=== PATIENT | female | born 1965 | race Caucasian/White ===

== ENCOUNTER 2016-07-09 21:45 | Emergency (ER) | payer MEDICAID ==
[~2016-07-09 21:45] MED LIST: LEVOTHYROXIN0.125 M2 PO
== END 2016-07-09 23:47 | disposition left against medical advice (07) ==
LOC: ED 21:45
DX: Z53.21 Procedure and treatment not carried out due to patient leaving prior to being seen by health care provider (principal)

== ENCOUNTER 2017-09-30 06:47 | Emergency (ER) | payer MEDICAID ==
[~2017-09-30] VITALS: Ht 162.6 cm; Wt 75.7 kg
[2017-09-30 06:52] VITALS: Ht 162.6 cm; Wt 75.7 kg
[2017-09-30 07:36] LABS: BASOPHIL % 0.6 % (0-2); PLATELET COUNT 210 x10^3mcL (130-400); RED CELL DISTRIBUTION WIDTH 14.4 % (11.5-14.5)
[2017-09-30 09:08] VITALS: BP 126/84
== END 2017-09-30 09:08 | disposition home or self-care (01) ==
LOC: ED 06:47
PROVIDERS: Emergency Medicine
DX: R04.0 Epistaxis (principal); I10 Essential (primary) hypertension
CPT/HCPCS: 36415

== ENCOUNTER 2017-10-02 08:57 | Emergency (ER) | payer MEDICAID ==
[~2017-10-02] VITALS: Ht 162.6 cm; Wt 74.8 kg
[2017-10-02 09:02] VITALS: BP 139/91
== END 2017-10-02 10:07 | disposition home or self-care (01) ==
LOC: ED 08:57
DX: Z48.01 Encounter for change or removal of surgical wound dressing (principal); I10 Essential (primary) hypertension

== ENCOUNTER 2019-01-27 00:45 | Emergency (ER) | payer MEDICAID ==
[~2019-01-27] VITALS: Ht 165.1 cm; Wt 71.7 kg
[2019-01-27 01:14] VITALS: Ht 165.1 cm; Wt 71.7 kg
[2019-01-27 02:47] VITALS: BP 139/79
== END 2019-01-27 02:47 | disposition home or self-care (01) ==
LOC: ED 00:45
DX: R68.84 Jaw pain (principal); I10 Essential (primary) hypertension

== ENCOUNTER 2019-09-10 11:42 | Emergency (ER) | payer MEDICAID ==
[~2019-09-10] VITALS: Ht 162.6 cm; Wt 73.0 kg
[2019-09-10 11:52] VITALS: Ht 162.6 cm; Wt 73.0 kg
[2019-09-10 12:37] LABS: BASOPHIL % 0.4 % (0-2); PLATELET COUNT 246 x10^3mcL (130-400)
[2019-09-10 12:40] LABS: RED CELL DISTRIBUTION WIDTH 29.4 % (11.5-14.5)
[2019-09-10 14:44] VITALS: BP 130/75
== END 2019-09-10 14:44 | disposition home or self-care (01) ==
LOC: ED 11:42
PROVIDERS: Emergency Medicine
DX: N93.8 Other specified abnormal uterine and vaginal bleeding (principal); D25.9 Leiomyoma of uterus, unspecified; I10 Essential (primary) hypertension; Z98.890 Other specified postprocedural states; Z90.89 Acquired absence of other organs
CPT/HCPCS: J1885